=== PATIENT | male | born 1955 | race Caucasian/White ===

== ENCOUNTER 2016-07-21 18:01 | Emergency (ER) | payer OTHER ==
[~2016-07-21] VITALS: Ht 180.3 cm; Wt 83.9 kg
[~2016-07-21 18:01] MED LIST: ATOR20TA58 PO; BYSTOLIC5 MG PO; CIPR500T94 PO; CLOP75TA PO; HYDR-2666 PO; KETO5DRO OS; LISI1TAB3 PO; RANI150T2 PO; TAMS0.4C97 PO; [UNRECOGNIZED DRUG - REMARK]; [UNRECOGNIZED DRUG - REMARK]; cholesterol pill
[2016-07-21 18:42] VITALS: BP 151/80
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
[2016-07-21] MEDS ORDERED: HYDR-971 PO (19:59)
[2016-07-21] MEDS ORDERED: METH-37 PO (19:59)
== END 2016-07-21 20:30 | disposition home or self-care (01) ==
LOC: ER 18:01
DX: S16.1XXA Strain of muscle, fascia and tendon at neck level, initial encounter (principal); M25.512 Pain in left shoulder; K21.9 Gastro-esophageal reflux disease without esophagitis; E78.00 Pure hypercholesterolemia, unspecified; I10 Essential (primary) hypertension; Z86.73 Personal history of transient ischemic attack (TIA), and cerebral infarction without residual deficits; V49.40XA Driver injured in collision with unspecified motor vehicles in traffic accident, initial encounter; Y93.I9 Activity, other involving external motion; Y92.410 Unspecified street and highway as the place of occurrence of the external cause; Y99.8 Other external cause status
CPT/HCPCS: 70450; 72125; 99284-25

== ENCOUNTER 2018-09-26 19:05 | Emergency (ER) | payer MEDICARE, OTHER ==
[~2018-09-26] VITALS: Ht 180.3 cm; Wt 83.9 kg
[~2018-09-26 19:05] MED LIST changes: -HYDR-2666 PO; +HYDR-2761 PO; +HYDR-3164 PO; +METH-37 PO
[2018-09-26] MEDS ORDERED: GLUCAGON,HUMAN RECOMBINANT 1 MG/ML VIAL. IV ONE (20:15)
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
--- NOTE | 2018-09-26 22:44 | PDOC2 ---
CONSULT Date of Consult Date of Consult DATE: 09/26/18 TIME: 22:36 Reason for Consult Reason for Consult: Impacted food bolus. Identification/Chief Complaint Chief Complaint Dysphagia Source Source: Patient History of Present Illness Reason for Visit: 63 y/o male with feeling of impacted food bolus after lunch today; historically chicken. 2-year h/o fairly persistent dysphagia. H/o heartburn; currently untreated. Denies prior EGD. Claims prior ulcer. No GB. liver or pancreatic history. No tobacco, alcohol or NSAID use. Takes ASA 81mg daily. Denies diarrhea, constipation, blood in stool or melena. No prior colonoscopy. GIFH negative. Past Medical History Cardiovascular: HTN, Hyperlipidemia CENTRAL NERVOUS SYSTEM: CVA Past Surgical History Past Surgical History: Other (left mastoidectomy) Family History Family History: Cancer (uncles/type unknown), Coronary Artery Disease, Diabetes, Hypertension, Stroke Social History No ALCOHOL: none Drugs: None Current Problem List Problem List Problems Medical Problems: (1) Esophageal obstruction due to food impaction Status: Acute Current Medications Current Medications Current Medications Glucagon (Glucagen) 1 mg 1X ONCE IV Last administered on 09/26/18at 20:16; Start 09/26/18 at 20:15; Stop 09/26/18 at 20:16; Status DC Active Scripts Denies home meds other than ASA currently. Allergies Allergies: Coded Allergies: No Known Drug Allergies (Unverified , 04/17/14) ROS Review of System Otherwise negative. Physical Exam General: Alert, Oriented X3, Cooperative, No acute distress HEENT: Atraumatic Lungs: Clear to auscultation Heart: Regular rate, Normal S1, Normal S2, No murmurs Abdomen: Normal bowel sounds, Soft, No tenderness, No hepatosplenomegaly, No masses Extremities: No cyanosis, No edema Skin: No significant lesion Neuro: Normal speech, Strength at 5/5 X4 ext, Normal tone, Sensation intact, Cranial nerves 3-12 NL, Reflexes 2+ Psych/Mental Status: Mental status NL, Mood NL MUSCULOSKELETAL: No deformity, No swelling Vitals VITALS Vital Signs Date Time Temp Pulse Resp B/P (MAP) Pulse Ox O2 Delivery O2 Flow Rate FiO2 09/26/18 19:07 97.4 85 16 168/109 (128) 10 Room Air 97.4 Assessment/Plan Assessment/Plan IMP: Frequent dysphagia, now with historical food impaction. PLAN: EGD JAMES,DENZEL F MD Sep 26, 2018 22:44
[2018-09-26] MEDS ORDERED: PROPOFOL 20 ML IV ONE (23:57)
--- NOTE | 2018-09-27 00:17 | PDOC4 ---
PROCEDURE Procedure EGD Indication: suspected food impaction Meds: per anesthesia Findings: E--Ulcerated at GEJ (38cm); no food present. Unclear if stricture, but no resistance to endoscope passage. G--Small amount retained liquid. D--Deformity bulb c/w possible prior ulcer. Reinier. well. IMP: Spontaneous bolus passage. Likely reflux underlying; unclear meaningful stricture. REC: OTC PPI daily. F/u in 3-4 weeks in office. DENZEL JAMES MD Sep 27, 2018 00:17
[2018-09-27] MEDS ORDERED: IV RINGERS,LACTATED 1000ML 1,000 ML IV SCH (00:22)
[2018-09-27 00:23] VITALS: BP 127/79
[2018-09-27] MEDS ORDERED: MIDAZOLAM HCL/PF 2 MG/2 ML VIAL. IV PRN (00:30)
[2018-09-27] MEDS ORDERED: LIDOCAINE 1% PF 2 ML VIAL. ID PRN (00:30)
[2018-09-27] MEDS ORDERED: fentaNYL PF VIAL 100 MCG/2 ML VIAL IV PRN ×2 (00:30)
--- NOTE | 2018-09-27 04:08 | RAD ---
CHEST PA LATERAL CLINICAL INDICATION: FEELING OF NOT BEING ABLE TO SWALLOW COMPARISON: None FINDINGS: Heart is normal in size. Lungs are hyperinflated. No focal consolidation. No pneumothorax or pleural effusion. Visualized bony thorax is within normal limits. IMPRESSION: COPD changes. No acute pulmonary process. Electronically signed by: Dusty Silva DO (09/27/2018 4:05 AM) [facility]
--- NOTE | 2018-09-27 07:25 | EKG ---
[facility] [address] [place] [address] Test Date: 2018-09-26 Test Time: 19:19:07 Pat Name: SHAYNE ORLANDO Department: Room: Gender: M Acute Care Nurse Practitioner: : 1955 Requested By: DENZEL GARG Order Number: [id number] Reading MD: Jay Pope Measurements Intervals [place] Rate: 71 P: 48 WI: 186 QRS: -49 QRSD: 82 T: 41 QT: 392 QTc: 426 Interpretive Statements SINUS RHYTHM ABNORMAL LEFT AXIS DEVIATION QRS(T) CONTOUR ABNORMALITY CONSISTENT WITH INFERIOR INFARCT PROBABLY OLD Electronically Signed On 09-29-2018 17:44:27 CDT by Jay Pope
== END 2018-09-27 00:01 | disposition home or self-care (01) ==
LOC: ER 19:05
DX: T18.120A Food in esophagus causing compression of trachea, initial encounter (principal); K22.2 Esophageal obstruction; K21.9 Gastro-esophageal reflux disease without esophagitis; E78.00 Pure hypercholesterolemia, unspecified; I10 Essential (primary) hypertension; Z86.73 Personal history of transient ischemic attack (TIA), and cerebral infarction without residual deficits; X58.XXXA Exposure to other specified factors, initial encounter; Y93.89 Activity, other specified; Y92.89 Other specified places as the place of occurrence of the external cause; Y99.8 Other external cause status
CPT/HCPCS: 43247; 71046; 93005; 96374; 99284; J1610; J2704; J7120

== ENCOUNTER 2018-10-14 19:22 | Emergency (ER) | payer MEDICARE ==
[~2018-10-14] VITALS: Ht 180.3 cm; Wt 83.9 kg
[2018-10-14 20:36] LABS: BASO % 0 % (0-3); EOS # 0.4 x10^3/uL (0.0-0.7); EOS % 4 % (0-3); HEMATOCRIT 40.5 % (39.0-53.0); HEMOGLOBIN 13.6 g/dL (13.0-17.5); LYMPH # 1.4 x10^3/uL (1.0-4.8); LYMPH % 13 % (24-48); MEAN CORPUSCULAR HEMOGLOBIN 31 pg (25-35); MEAN CORPUSCULAR HGB CONC 34 g/dL (31-37); MEAN CORPUSCULAR VOLUME 92 fL (79-100); MONO % 9 % (0-9); NEUT # 8.2 x10^3uL (1.8-7.7); NEUT % 74 % (31-73); PLATELET COUNT 181 x10^3/uL (140-400); RED BLOOD COUNT 4.43 x10^6/uL (4.30-5.70); RED CELL DISTRIBUTION WIDTH 12.8 % (11.5-14.5); WHITE BLOOD COUNT 11.1 x10^3/uL (4.0-11.0)
[2018-10-14 20:45] LABS: CREATININE 1.8 mg/dL (0.7-1.3); GFR 38.1; POTASSIUM 4.4 mmol/L (3.5-5.1)
[2018-10-14 20:45] LABS: BILIRUBIN,URINE NEGATIVE (NEG); CLARITY,URINE CLOUDY; COLOR,URINE YELLOW; NITRITE,URINE NEGATIVE (NEG); PH,URINE 7.5; PROTEIN,URINE NEGATIVE (NEG-TRACE)
[2018-10-14 20:50] LABS: ALBUMIN 3.5 g/dL (3.4-5.0); TOTAL BILIRUBIN 0.4 mg/dL (0.2-1.0); TOTAL PROTEIN 7.1 g/dL (6.4-8.2)
[2018-10-14 20:59] LABS: BACTERIA,URINE FEW /HPF (0-FEW); SQUAMOUS EPITHELIAL CELL,UR OCC /LPF
--- NOTE | 2018-10-14 22:32 | PHYS DOC ---
Past Medical History Past Medical History: GERD, High Cholesterol, Hypertension, P.U.D., Stroke, Other Additional Past Medical Histor: Ulcer (GI), "over-sized colon",CHRONIC BACK PAIN Past Surgical History: Other Additional Past Surgical Histo: Mastoidectomy L) Alcohol Use: None Drug Use: None Adult General Chief Complaint Chief Complaint: WEAKNESS/GENERALIZED HPI HPI Patient is a 63 year-old generalized weakness and fatigue for 2 days. Patient reports decreased oral intake and difficulty swallowing which is chronic. Patient's been previously evaluated for dysphagia and has been referred to ED and ENT physician. He has not followed up due to lack of insurance but has recently reacquired it is in the process of reestablishing a primary care physician. Denies headache, blurred vision, chest pain palpitations, shortness breath, nausea, vomiting, diarrhea constipation. No ear chills, sweats. No other acute symptoms or complaints. [] Review of Systems Review of Systems Review symptoms as per history of present illness. All other systems were reviewed and found to be within normal limits, except as documented in this note. Allergies Allergies Allergies Coded Allergies Type Severity Reaction Last Updated Verified No Known Drug Allergies 09/26/18 No Physical Exam Physical Exam Constitutional: Well developed, well nourished, no acute distress, non-toxic appearance. [] HENT: Normocephalic, atraumatic, bilateral external ears normal, nose normal. [] Eyes: PERRLA, EOMI, conjunctiva normal. [] Neck: Normal range of motion, no tenderness. [] Cardiovascular:Heart rate regular rhythm, no murmur. [] Lungs & Thorax: Bilateral breath sounds clear to auscultation [] Abdomen: Bowel sounds normal, soft, no tenderness. [] Skin: Warm, dry, no erythema. [] Back: No tenderness. [] Extremities: No tenderness. [] Neurologic: Alert and oriented X 3, normal motor function, normal sensory function, no focal deficits noted. [] Psychologic: Affect normal, judgement normal, mood normal. [] Current Patient Data Vital Signs Vital Signs Date Time Temp Pulse Resp B/P (MAP) Pulse Ox O2 Delivery O2 Flow Rate FiO2 10/14/18 19:58 98.5 78 16 158/86 (110) 98 Room Air 98.5 Lab Values Laboratory Tests Test 10/14/18 20:19 10/14/18 20:26 10/14/18 20:36 10/14/18 22:02 Glucose (Fingerstick) 71 mg/dL (70-99) 87 mg/dL (70-99) White Blood Count 11.1 x10^3/uL (4.0-11.0) H Red Blood Count 4.43 x10^6/uL (4.30-5.70) Hemoglobin 13.6 g/dL (13.0-17.5) Hematocrit 40.5 % (39.0-53.0) Mean Corpuscular Volume 92 fL (79-100) Mean Corpuscular Hemoglobin 31 pg (25-35) Mean Corpuscular Hemoglobin Concent 34 g/dL (31-37) Red Cell Distribution Width 12.8 % (11.5-14.5) Platelet Count 181 x10^3/uL (140-400) Neutrophils (%) (Auto) 74 % (31-73) H Lymphocytes (%) (Auto) 13 % (24-48) L Monocytes (%) (Auto) 9 % (0-9) Eosinophils (%) (Auto) 4 % (0-3) H Basophils (%) (Auto) 0 % (0-3) Neutrophils # (Auto) 8.2 x10^3uL (1.8-7.7) H Lymphocytes # (Auto) 1.4 x10^3/uL (1.0-4.8) Monocytes # (Auto) 1.0 x10^3/uL (0.0-1.1) Eosinophils # (Auto) 0.4 x10^3/uL (0.0-0.7) Basophils # (Auto) 0.0 x10^3/uL (0.0-0.2) Sodium Level 139 mmol/L (136-145) Potassium Level 4.4 mmol/L (3.5-5.1) Chloride Level 104 mmol/L (98-107) Carbon Dioxide Level 24 mmol/L (21-32) Anion Gap 11 (6-14) Blood Urea Nitrogen 20 mg/dL (8-26) Creatinine 1.8 mg/dL (0.7-1.3) H Estimated GFR (Cockcroft-Gault) 38.1 BUN/Creatinine Ratio 11 (6-20) Glucose Level 89 mg/dL (70-99) Calcium Level 9.0 mg/dL (8.5-10.1) Total Bilirubin 0.4 mg/dL (0.2-1.0) Aspartate Amino Transferase (AST) 19 U/L (15-37) Alanine Aminotransferase (ALT) 27 U/L (16-63) Alkaline Phosphatase 91 U/L (46-116) Troponin I Quantitative 0.036 ng/mL (0.000-0.055) Total Protein 7.1 g/dL (6.4-8.2) Albumin 3.5 g/dL (3.4-5.0) Albumin/Globulin Ratio 1.0 (1.0-1.7) Urine Collection Type Unknown Urine Color Yellow Urine Clarity Cloudy Urine pH 7.5 Urine Specific [place] 1.015 Urine Protein Negative mg/dL (NEG-TRACE) Urine Glucose (UA) Negative mg/dL (NEG) Urine Ketones (Stick) Negative mg/dL (NEG) Urine Blood Negative (NEG) Urine Nitrite Negative (NEG) Urine Bilirubin Negative (NEG) Urine Urobilinogen Dipstick 1.0 mg/dL (0.2 mg/dL) Urine Leukocyte Esterase Small (NEG) Urine RBC 1-2 /HPF (0-2) Urine WBC 1-4 /HPF (0-4) Urine Squamous Epithelial Cells Occ /LPF Urine Bacteria Few /HPF (0-FEW) Urine Mucus Slight /LPF Laboratory Tests 10/14/18 20:26 Laboratory Tests 10/14/18 20:26 EKG EKG [EKG: reviewed] Radiology/Procedures Radiology/Procedures [] Course & Med Decision Making Course & Med Decision Making Pertinent Labs and Imaging studies reviewed. (See chart for details) [Work up, nondiagnostic. Patient's initial blood sugar 71. He was given something to eat while in the emergency department. Recommend mechanical soft diet and following up with PCP as soon as possible. Return precautions reviewed.] Dragon Disclaimer Dragon Disclaimer This electronic medical record was generated, in whole or in part, using a voice recognition dictation system. Departure Departure Impression: Primary Impression: Hypoglycemia Additional Impression: Generalized weakness Disposition: HOME, SELF-CARE Condition: GOOD Patient Instructions: Hypoglycemia (Low Blood Sugar), Weakness, [id number] Additional Instructions: Please eat regular meals and follow up with your PCP in the next 3 days. Return to the ED if new or worsening and symptoms. Problem Qualifiers JOSS FRANKLIN DO October 14, 2018 22:32
[2018-10-14 22:39] VITALS: BP 167/95
--- NOTE | 2018-10-14 23:11 | RAD ---
AP portable chest radiograph 10/14/2018 Clinical History: Cough. An AP erect portable digital radiograph of the chest was obtained. Comparison study is dated 09/26/2018. The cardiac silhouette is borderline enlarged. The thoracic aorta is minimally tortuous. No acute pulmonary infiltrate is seen. No pleural effusion or pneumothorax is noted. The osseous structures are unchanged. Impression: No acute abnormality is seen. Electronically signed by: Raimundo Nunn MD (10/14/2018 11:07 PM) [facility]
--- NOTE | 2018-10-15 07:32 | EKG ---
[facility] [address] [place] [address] Test Date: 2018-10-14 Test Time: 20:15:30 Pat Name: SHAYNE ORLANDO Department: Room: Gender: M Telecine Operator: : 1955 Requested By: JOSS FRANKLIN Order Number: [id number] Reading MD: Antwan Narayan Measurements Intervals [place] Rate: 79 P: 28 AL: 196 QRS: -42 QRSD: 82 T: 13 QT: 344 QTc: 395 Interpretive Statements SINUS RHYTHM ABNORMAL LEFT AXIS DEVIATION QRS(T) CONTOUR ABNORMALITY CONSISTENT WITH INFERIOR INFARCT PROBABLY OLD ABNORMAL ECG Electronically Signed On 11-05-2018 12:24:45 CDT by Antwan Narayan
--- NOTE | 2018-10-18 17:58 | VNOTE ---
CALL BACK NOTE CALL BACK Microbiology 10/14/18 Urine Culture - Final, Complete 10/14/18 Urine Culture Result 1 ([place]) - Final, Complete 10/14/18 Antimicrobic Susceptibility - Final, Complete 10/18/18 the patient was called regarding his urine culture. The call went to voicemail. Message left for him to call [facility]. MALINDA LEVIN APRN October 18, 2018 17:58
--- NOTE | 2018-10-19 18:19 | VNOTE ---
CALL BACK NOTE CALL BACK Microbiology 10/14/18 Urine Culture - Final, Complete 10/14/18 Urine Culture Result 1 ([place]) - Final, Complete 10/14/18 Antimicrobic Susceptibility - Final, Complete Called patient regarding left VM. Patient called back right away he states he has had dysuria since he was seen at [facility]. RX for cipro called to [facility] on [address] [facility] ANI NAVARRO APRN October 19, 2018 18:19
== END 2018-10-14 22:53 | disposition home or self-care (01) ==
LOC: ER 19:22
DX: R53.1 Weakness (principal); E16.2 Hypoglycemia, unspecified; K21.9 Gastro-esophageal reflux disease without esophagitis; E78.00 Pure hypercholesterolemia, unspecified; I10 Essential (primary) hypertension; G89.29 Other chronic pain; Z86.73 Personal history of transient ischemic attack (TIA), and cerebral infarction without residual deficits
CPT/HCPCS: 36415; 71045; 80053; 81001; 82962; 84484; 85025; 87086; 87186; 93005; 99285-25